=== PATIENT | male | born 1955 | race Caucasian/White ===

== ENCOUNTER 2022-12-29 02:07 | Emergency (ER) | payer OTHER ==
[2022-12-29 02:17] VITALS: TEMP 97.9; BMI 26.6
[2022-12-29 03:08] VITALS: BP 165/85; PULSE 70; RESP 18
== END 2022-12-29 03:14 | disposition home or self-care (01) ==
LOC: FER 02:07
DX: I10 Essential (primary) hypertension (principal)
CPT/HCPCS: 99282-25

== ENCOUNTER 2024-10-11 11:05 | Observation (INO) | payer OTHER ==
[2024-10-11] MEDS: methylPREDNISolone NA SUCC 125 MG/2 ML VIAL IVPUSH ONE (12:20)
[2024-10-11 12:47] LABS: HEMATOCRIT 41.6 % (35.4-49); HEMOGLOBIN 13.9 G/dL (11.7-16.9); MCH 26.9 pg (25.7-33.7); MCHC 33.3 g/dl (32.0-35.9); MEAN CELL VOLUME 80.6 fl (80-96); MEAN PLT VOLUME 11.4 fl (7.5-11.1); PLATELET COUNT 144.6 10^3/uL (134-434); RBC 5.16 10^6/uL (4.00-5.60); WHITE BLOOD COUNT 9.8 10^3/uL (4.0-10.8)
[2024-10-11 13:11] LABS: ALBUMIN 4.7 g/dl (3.4-5.0); BILIRUBIN,TOTAL 0.7 mg/dl (0.2-1); CALCIUM 9.3 mg/dl (8.5-10.1); CREATININE 0.9 mg/dl (0.6-1.3); POTASSIUM 4.3 mmol/L (3.5-5.1); TOT PROT 7.1 g/dl (6.4-8.2)
[2024-10-11 13:35] LABS: PLATELET ESTIMATE DECREASED
[2024-10-11] MEDS ORDERED: ACETAMINOPHEN INJECTION 100 ML ONE (14:23)
[2024-10-11] MEDS: ACETAMINOPHEN 1000 MG/100 ML BAG IVPB ONE (14:28)
[2024-10-11] MEDS ORDERED: cefTRIAXone SODIUM 1 GM VIAL ONE (15:40)
[2024-10-11 15:42] LABS: HIV INTERPRETATION NEGATIVE (NEGATIVE)
[2024-10-11] MEDS: CEFTRIAXONE 1,000 MG in DEXTROSE 5%-WATER - 50 ML IVPB ONE (15:45)
[2024-10-11 18:12] VITALS: BMI 28.1
[2024-10-11] MEDS: KETOROLAC TROMETHAMINE 15 MG/ML VIAL IVPUSH PRN (18:25)
[2024-10-11] MEDS: POLYETHYLENE GLYCOL (HEALTHYLAX) 3350 17 GM PACKET PO SCH (18:55)
[2024-10-11 21:12] VITALS: RESP 18
[2024-10-11] MEDS: INSULIN ASPART SLIDING SCALE (NOVOLOG) 1 VIAL SQ SCH (21:16)
[2024-10-11] MEDS: INSULIN (LEVEMIR) 100 UNITS/ML UNITS SQ SCH (21:16)
[2024-10-11] MEDS: ATORVASTATIN CA 80 MG TABLET (FP) PO SCH (21:17)
[2024-10-11] MEDS: SENNOSIDES 8.6MG TABLET (FP) PO SCH (21:17)
[2024-10-11] MEDS: PANTOPRAZOLE 40 MG TABLET PO SCH (21:17)
[2024-10-11] MEDS: amLODIPine BESYLATE 5 MG TABLET (FP) PO SCH (21:17)
[2024-10-11] MEDS: DOXYCYCLINE INJECTION 100 MG in DEXTROSE 5%-WATER 100 ML IVPB SCH (21:18)
[2024-10-11] MEDS: ACETAMINOPHEN 1000 MG/100 ML BAG IVPB PRN (23:17)
[2024-10-12 08:32] LABS: HEMATOCRIT 37.1 % (35.4-49); HEMOGLOBIN 12.2 G/dL (11.7-16.9); MCH 26.5 pg (25.7-33.7); MCHC 32.9 g/dl (32.0-35.9); MEAN CELL VOLUME 80.6 fl (80-96); MEAN PLT VOLUME 11.8 fl (7.5-11.1); PLATELET COUNT 145.2 10^3/uL (134-434); RDW 15.4 % (11.9-15.9); WHITE BLOOD COUNT 8.6 10^3/uL (4.0-10.8)
[2024-10-12 08:36] LABS: INR 1.06 (0.83-1.09); PROTHROMBIN TIME (PATIENT) 12.1 SEC (9.7-13.0)
[2024-10-12 09:28] LABS: CALCIUM 8.7 mg/dl (8.5-10.1); CREATININE 0.8 mg/dl (0.6-1.3); POTASSIUM 3.7 mmol/L (3.5-5.1)
[2024-10-12] MEDS: VALSARTAN 160 MG TABLET PO SCH (09:59)
[2024-10-12] MEDS: traMADol HCL 50 MG TABLET PO PRN (09:59)
[2024-10-12] MEDS: CEFAZOLIN SODIUM 2 GM in DEXTROSE 5%-WATER 100 ML IVPB SCH (09:59)
[2024-10-12] MEDS: CARVEDILOL 6.25 MG TABLET (FP) PO SCH (09:59)
[2024-10-12] MEDS: ENOXAPARIN NA (PORCINE) 40 MG/0.4 ML DISP.SYRIN SQ SCH (10:00)
[2024-10-12] MEDS ORDERED: VALSARTAN 160 MG TABLET PO SCH (10:00)
[2024-10-12] MEDS: BISACODYL 10 MG SUPP.RECT PR ONE (10:00)
[2024-10-12] MEDS ORDERED: METOPROLOL TARTRATE 25 MG TABLET (FP) PO SCH ×3 (10:00)
[2024-10-12] MEDS: NICOTINE 14 MG/24 HOURS TOPICAL PATCH TD SCH (10:00)
[2024-10-12 12:18] LABS: PLATELET ESTIMATE ADEQUATE
[2024-10-12] MEDS: amLODIPine BESYLATE 5 MG TABLET (FP) PO SCH (21:14)
[2024-10-13] MEDS: BISACODYL 10 MG SUPP.RECT PR ONE (05:36)
[2024-10-13 06:09] VITALS: TEMP 98.1
[2024-10-13 09:49] LABS: BASO % 0.3 % (0-2.0); HEMATOCRIT 38.4 % (35.4-49); HEMOGLOBIN 12.9 GM/dL (11.7-16.9); MCH 26.5 pg (25.7-33.7); MCHC 33.5 g/dl (32.0-35.9); MEAN CELL VOLUME 78.9 fl (80-96); MONO % 12.3 % (3.8-10.2); NEUT % 58.4 % (42.8-82.8); PLATELET COUNT 174 10^3/uL (134-434); RBC 4.86 M/mm3 (4.00-5.60); WHITE BLOOD COUNT 8.7 K/mm3 (4.0-10.0)
[2024-10-13 10:05] LABS: POTASSIUM 4.2 mmol/L (3.5-5.1)
[2024-10-13 10:10] LABS: CALCIUM 8.6 mg/dL (8.5-10.1)
[2024-10-13 10:12] LABS: BLOOD UREA NITROGEN 16.8 mg/dL (7-18)
[2024-10-13 10:14] LABS: CREATININE 0.9 mg/dL (0.55-1.3)
[2024-10-13] MEDS: MINERAL OIL ENEMA 133 ML ENEMA RC ONE (11:58)
[2024-10-13 12:26] VITALS: BP 111/68; PULSE 73
== END 2024-10-13 13:48 | disposition home or self-care (01) ==
LOC: FER 11:05 → INTOOBSV 15:56 → FM/S 15:56 → J5S 10-12 15:03
PROVIDERS: ADMIT Internal Medicine; ATTEND Internal Medicine
PROC: 3E033NZ Introduction of Analgesics, Hypnotics, Sedatives into Peripheral Vein, Percutaneous Approach (ICD-10-PCS; principal; 2024-10-11)
PROC: 3E03329 Introduction of Other Anti-infective into Peripheral Vein, Percutaneous Approach (ICD-10-PCS; 2024-10-11)
PROC: 3E023GC Introduction of Other Therapeutic Substance into Muscle, Percutaneous Approach (ICD-10-PCS; 2024-10-11)
PROC: 3E013VG Introduction of Insulin into Subcutaneous Tissue, Percutaneous Approach (ICD-10-PCS; 2024-10-11)
PROC: 3E0333Z Introduction of Anti-inflammatory into Peripheral Vein, Percutaneous Approach (ICD-10-PCS; 2024-10-11)
DX: L97.509 Non-pressure chronic ulcer of other part of unspecified foot with unspecified severity (principal); L03.115 Cellulitis of right lower limb; E08.621 Diabetes mellitus due to underlying condition with foot ulcer; L08.9 Local infection of the skin and subcutaneous tissue, unspecified; I73.9 Peripheral vascular disease, unspecified; E78.5 Hyperlipidemia, unspecified; I11.9 Hypertensive heart disease without heart failure; M79.671 Pain in right foot; Z95.5 Presence of coronary angioplasty implant and graft; F17.210 Nicotine dependence, cigarettes, uncomplicated
CPT/HCPCS: 36415; 73630-TC-RT-FY; 73718-TC-RT; 80048; 80053; 82962; 85025; 85027; 85610; 85651; 86140; 86803; 87040; 87389; 96365; 96366; 96367; 96372; 96375; 96376; 99285-25; G0378; J0131